=== PATIENT | female | born 1945 | race Caucasian/White ===

== ENCOUNTER 2023-11-09 07:25 | Day surgery (SDC) | payer MEDICARE, BC ==
[2023-11-09] MEDS: Sodium Chloride 0.9% 1,000 ML IV SCH (07:48)
[2023-11-09] MEDS ORDERED: fentaNYL 50 MCG/ML SDV ONE (08:44)
[2023-11-09] MEDS ORDERED: Propofol 200 MG/20 ML SDV ONE (08:44)
== END 2023-11-09 11:30 | disposition home or self-care (01) ==
LOC: JP.SDS 07:25
PROVIDERS: ATTEND Surgery
DX: Z12.11 Encounter for screening for malignant neoplasm of colon (principal); D12.0 Benign neoplasm of cecum; D12.4 Benign neoplasm of descending colon; K57.30 Diverticulosis of large intestine without perforation or abscess without bleeding; I12.9 Hypertensive chronic kidney disease with stage 1 through stage 4 chronic kidney disease, or unspecified chronic kidney disease; E11.22 Type 2 diabetes mellitus with diabetic chronic kidney disease; N18.9 Chronic kidney disease, unspecified
CPT/HCPCS: 00811; 45385; 88305; J2704; J3010; J7030